=== PATIENT | female | born 1970 | race Caucasian/White ===

== ENCOUNTER 2016-04-21 00:05 | Emergency (ER) | payer BC | END 2016-04-21 03:56 | disposition home or self-care (01) | LOC: ER 00:05 | DX: R00.2 Palpitations (principal); D72.829 Elevated white blood cell count, unspecified; I10 Essential (primary) hypertension; Z79.899 Other long term (current) drug therapy; F17.210 Nicotine dependence, cigarettes, uncomplicated | CPT/HCPCS: 36415; 71010; 80053; 82550; 83735; 83880; 84484; 85025; 85610; 85730; 93005 ==